=== PATIENT | female | born 1965 | race Caucasian/White ===

== ENCOUNTER 2016-04-23 14:59 | Emergency (ER) | payer OTHER ==
[~2016-04-23] VITALS: Ht 152.4 cm; Wt 50.0 kg
[~2016-04-23 14:59] MED LIST: BCP; BIOTIN; CRANBERRY; METAMUCIL
--- NOTE | 2016-04-23 15:14 | ED.REPORT ---
HPI-General Illness Date of Service Apr 23, 2016 ED Provider: Venkata Enrique MD 50 year old female with a history of IBS, and UTI presents to the ER via EMS complaining of epigastric pain onset suddenly around 14:30 this afternoon while at work. She describes symptoms as a " intense shooting pain across her stomach ". Pain was exacerbated with deep breaths, and with ambulation. Initially she asked a coworker to take her to urgent care, but her boss called EMS when the patient was unable to walk due to the pain. Last night she had spicy bel[place] food , and has been taking apple cider vinegar regularly in recent weeks to treat cold symptoms. Patient denies any significant underlying medical conditions, history of blood clots, and recent immobilization. Nursing Notes Stated Complaint: ABDOMINAL PAIN Nursing Notes Reviewed: Yes Allergies: Coded Allergies: ciprofloxacin (Verified Allergy, Unknown, 10/04/14) Uncoded Allergies: ABX FOR UTI (PT UNABLE TO RECALL) (Allergy, Unknown, 10/04/14) Miscellaneous Medications ([Bcp]) ([Cranberry]) ([Biotin]) ([Metamucil]) General Time Seen by MD: 15:08 Chief Complaint Abdominal pain Hx Obtained From: Patient Arrived By: Ambulance Sudden in Onset?: Yes Onset Occurred: 1 - 4 hours ago Symptom Duration: Since onset Location: : Abdomen Quality: Sharp, Stabbing Severity: Current: Moderate Severity: Maximum: Moderate Pertinent Negative: Pt denies other symptoms Recent Healthcare: Recent doctor visit Similar Sx Previous: No Past Medical History Past Medical History IBS Denies: Stroke Reports: Urinary tract infection Social History Alcohol Use: "Social" (Occasionally) Review of Systems Full Review of Systems Constitutional: Denies: Chills, Fever Cardiovascular: Denies: Chest pain GI: Reports: Abdominal pain, Denies: Nausea, Vomiting Female: Denies: Dysuria, Flank pain Complete sys rev & neg: except as marked. Physical Exam Vital Signs Vital Signs Date Time Temp Pulse Resp B/P Pulse Ox O2 Delivery O2 Flow Rate FiO2 04/23/16 16:21 84 16 131/90 100 Room Air 04/23/16 15:15 36.9 96 16 147/89 100 Room Air Initial VS: Reviewed Head / Eyes: Atraumatic, Normocephalic, PERRL Neck: Supple, Non-tender, Full range of motion Extremities: Vascular intact, Neuro intact, No swelling, No tenderness Skin: Warm, Dry, No cyanosis Neurologic: Alert, Oriented, Nonfocal General/Constitutional: Awake, Alert, Well developed, Well nourished Respiratory / Chest: Breath sounds NL, No respiratory distress, No rales, No rhonchi, No wheezing Cardiovascular: Heart rate NL, Regular rhythm, Heart sounds NL, Cap refill not delayed, Peripheral circulation NL Abdomen: Soft, Non-tender, No guarding, No rebound, No distention Interpretation & Diagnostics Lab Results Interpretation Result Diagram: 04/23/16 1530 04/23/16 1530 Test 04/23/16 15:15 04/23/16 15:30 Hold Urine Received (Received) White Blood Count 9.7th/mm3 (3.8-10.1) Red Blood Count 4.59mil/mm3 (3.90-5.20) Hemoglobin 13.3g/dL (12.0-15.6) Hematocrit 40.1% (35.0-46.0) Mean Corpuscular Volume 87.4fL (81-100) Mean Corpuscular Hemoglobin 29.0pg (27.0-35.0) Mean Corpuscular Hemoglobin Concent 33.2% (32.0-37.0) Red Cell Distribution Width 12.8% (12.3-15.4) Platelet Count 209bil/L (150-400) Neutrophils (%) (Auto) 70.4% (40-74) Lymphocytes (%) (Auto) 20.5% (14-46) Monocytes (%) (Auto) 8.5% (4-12) Eosinophils (%) (Auto) 0.2% (0-5) Basophils (%) (Auto) 0.3% (0-3) Sodium Level 132mEq/L (134-144) Potassium Level 4.3mEq/L (3.5-5.2) Chloride Level 98mEq/L (97-108) Carbon Dioxide Level 22mmol/L (18-29) Blood Urea Nitrogen 11mg/dL (6-24) Creatinine 0.76mg/dL (0.57-1.00) Estimat Glomerular Filtration Rate 116mL/min (>59) Glucose Level 113mg/dL (60-99) Calcium Level 8.9mg/dL (8.5-10.1) Magnesium Level 2.0mg/dL (1.6-2.6) Total Bilirubin 0.2mg/dL (0.0-1.2) Aspartate Amino Transf (AST/SGOT) 31U/L (0-50) Alanine Aminotransferase (ALT/SGPT) 14U/L (0-32) Alkaline Phosphatase 63U/L (25-150) Total Protein 7.2g/dL (6.4-8.4) Albumin 3.6g/dL (3.4-5.0) Lipase 35U/L (13-60) Hold Pierce Top Tube Received (Received) ECG Interpretation Time: 16:21 Interpreted by: ED physician Normal ECG Interpretation: Normal rate, Normal sinus rhythm, No acute ischemic changes, Normal QRS, Normal axis, Normal intervals, No change from prior ECGs, Adequate tracing X-Ray Chest Interpretation Chest Xray Interpretation: IMPRESSION: Normal chest Dictated by: Ronak Marcano M.D. on 04/23/2016 at 16:13 Approved by: Ronak Marcano M.D. on 04/23/2016 at 16:14 View: Portable, 1 view Interpretation / Wet Read by: Interpret - Radiologist Re-Eval/Medical Decision Med Decision/Clinical Course 50 year old female with a history of IBS, and UTI presents to the ER via EMS complaining of epigastric pain onset suddenly around 14:30 this afternoon while at work. She describes symptoms as a " intense shooting pain across her stomach ". Pain was exacerbated with deep breaths, and with ambulation. Initially she asked a coworker to take her to urgent care, but her boss called EMS when the patient was unable to walk due to the pain. Last night she had spicy [place] food , and has been taking apple cider vinegar regularly in recent weeks to treat cold symptoms. Here in the emergency department she reports that she "passed gas" and expressed complete resolution of her symptoms. Laboratory studies were notable as below: CBC normal Chemistry normal Lipase WNL Abdominal examination was completely benign without any guarding, rigidity, rebound or tenderness. She reports a history of irritable bowel syndrome and thinks that her symptoms may be related to this as well as underlying bloating. There are no findings suggestive of acute surgical abdominal process that I do not feel that imaging studies are indicated. Well some of her description is slightly suggestive of pulmonary embolism she is at extremely low risk for PE without any physical exam findings suggestive of DVT. She has no ongoing symptoms and is not, tachycardic or hypoxic. I do not believe that PE workup is indicated. Her symptoms are not suggestive of acute coronary syndrome. She reports complete symptom resolution and would like to go home. I feel that this is appropriate. She will make appropriate dietary changes and return should she develop any new or recurrent symptoms. Follow-up and return precautions were reviewed in detail and she was discharged in good condition. Source of Hx: Old records Time of Eval: 16:16 Patient Status: Complete relief Re-Evaluation/Progress Note: Patient states that symptoms resolved after passing gas. Time of Eval: 16:26 Re-Evaluation/Progress Note: Completed physical examination. Discussed lab and radiology results and plan to discharge. Patient is amenable to the plan. Return precautions given. All other questions addressed. Counseled Regarding: Diagnosis, Lab results, Need for follow-up, When/why to return to ED Discharge & Departure Primary Impression: Abdominal pain Abdominal location: epigastric Qualified Code: R10.13 - Epigastric pain Additional Impressions: History of irritable bowel syndrome Bloating symptom Disposition: Home Discharge Condition All VS Reviewed: Yes Condition: Improved Additional Instructions: Thank you for seeking care at emergency room. It is difficult for us to make definitive diagnoses in the ED but we believe that you are experiencing generalized abdominal pain. Our primary goal today in the ED was to evaluate you for any life-threatening conditions. Your evaluation was reassuring. You should follow-up with your primary doctor this week. You should return to the ED immediately if your symptoms return, or if you develop fever, chills, nausea, vomiting, or any other concerning signs or symptoms. Thank you for letting us partake in your care today. Referrals: Kelin Suarez PA-C (PCP) Abhishek Attestation Portions of this note were transcribed by Dillon Workman. I, Dr. Enrique, personally performed the history, physical exam and medical decision-making; I reviewed and confirmed the accuracy of the information in the transcribed note. Signed by: Abhishek Sexton, 04/23/2016 and 16:31 copies to: Kelin Suarez PA-C, Beck O MD Apr 23, 2016 15:14 DILLON WORKMAN Apr 23, 2016 16:29
[2016-04-23 15:15] VITALS: BP 147/89; PULSE 96; RESP 16; O2SAT 100
[2016-04-23 15:56] LABS: BASOPHILS % (AUTO) 0.3 % (0-3); EOSINOPHILS % (AUTO) 0.2 % (0-5); MONOCYTES % (AUTO) 8.5 % (4-12); Mean Corpuscular Volume 87.4 fL (81-100); NEUTROPHILS % (AUTO) 70.4 % (40-74); Platelet Count 209 bil/L (150-400)
--- NOTE | 2016-04-23 16:15 | DRSVH ---
PROCEDURE: X-RAY CHEST ONE VIEW, PORTABLE ([id number]) INDICATIONS: SHORT OF BREATH TECHNIQUE: One view of the chest was acquired. COMPARISON: None. FINDINGS: Surgical changes and devices: None. Lungs and pleura: No pleural effusions or pneumothorax or pneumomediastinum. Lungs are clear. Mediastinum: Mediastinal contours appear normal. Heart size is normal. Bones and chest wall: No suspicious bony lesions. Overlying soft tissues appear unremarkable. IMPRESSION: Normal chest Dictated by: Ronak Marcano M.D. on 04/23/2016 at 16:13 Approved by: Ronak Marcano M.D. on 04/23/2016 at 16:14
[2016-04-23 16:21] VITALS: BP 131/90; PULSE 84; RESP 16; O2SAT 100
== END 2016-04-23 16:50 | disposition home or self-care (01) ==
LOC: EDBD 14:59 → SED 14:59 → EDUNIT# 14:59 → SED 16:50
DX: R10.13 Epigastric pain (principal); R14.0 Abdominal distension (gaseous); Z87.19 Personal history of other diseases of the digestive system; Z87.440 Personal history of urinary (tract) infections; Z88.1 Allergy status to other antibiotic agents